=== PATIENT | female | born 1945 | race Caucasian/White ===

== ENCOUNTER 2024-08-02 16:53 | Observation (INO) ==
[2024-08-02 17:14] LABS: ABS Basophils 0.1 10^3/uL (0.0-0.1); ABS Eosinophils 0.1 10^3/uL (0.0-0.5); ABS Monocytes 0.8 10^3/uL (0.0-0.9); ABS Neutrophils 3.8 10^3/uL (1.5-7.6); ABS Nucleated RBC 0.01 10^3/ul; Eosinophil % 2.2 %; Hematocrit 45.1 % (35-45); Hemoglobin 15.5 g/dL (11.5-14.3); Mean Corpuscular Hemoglobin 31.1 pg (27-33); Mean Corpuscular Hgb Conc 34.4 g/dL (31-36); Mean Corpuscular Volume 90.4 fL (80-97); Mean Platelet Volume 9.3 fL (7.5-11.2); Nucleated Red Blood Cells % 0.2 %/100WBC (0.0-0.8); Platelet Count 172 10^3/uL (150-450); Red Blood Count 4.98 10^6/uL (3.63-4.92); Red Cell Distribution Width 12.9 % (12-17); White Blood Count 5.7 10^3/uL (3.8-11.8)
[2024-08-02 17:27] LABS: INR 0.9 (0.85-1.14)
[2024-08-02 17:49] LABS: Albumin 4.2 g/dL (3.2-5.2); Albumin/Globulin Ratio 1.7 (1-3); Calcium 9.6 mg/dL (8.6-10.3); Creatinine, Serum 0.7 mg/dL (0.51-0.95); Globulin 2.5 g/dL (2-4); Potassium 4.1 mmol/L (3.5-5.0); Total Bilirubin 0.8 mg/dL (0.2-1.0); Total Protein 6.7 g/dL (6.4-8.9); eGFR CKD-EPI 87.9 (>60)
[2024-08-02 18:34] LABS: High Sensitivity Troponin 1 Hr 43 pg/mL (<15)
[2024-08-02 19:40] LABS: High Sensitivity Troponin 3 Hr 83 pg/mL (<15)
[2024-08-02] MEDS: Heparin 5000 UNITS/ML 1 mL VIAL IV SCH (22:08)
[2024-08-02] MEDS: Heparin DRIP 25,000 UNITS BAG 25,000 UNITS/250 ML BAG IV SCH (22:11)
[2024-08-02 22:17] LABS: ABS Eosinophils 0.2 10^3/uL (0.0-0.5); ABS Lymphocytes 1.4 10^3/uL (1.0-4.8); ABS Neutrophils 3.9 10^3/uL (1.5-7.6); ABS Nucleated RBC 0.01 10^3/ul; Eosinophil % 2.6 %; Hemoglobin 15.6 g/dL (11.5-14.3); Lymphocyte % 21.2 %; Mean Corpuscular Hemoglobin 30.7 pg (27-33); Mean Corpuscular Volume 90.5 fL (80-97); Mean Platelet Volume 9.3 fL (7.5-11.2); Nucleated Red Blood Cells % 0.1 %/100WBC (0.0-0.8); Platelet Count 183 10^3/uL (150-450); Red Blood Count 5.09 10^6/uL (3.63-4.92); Red Cell Distribution Width 12.9 % (12-17); White Blood Count 6.5 10^3/uL (3.8-11.8)
[2024-08-02 22:42] LABS: Creatinine, Serum 0.76 mg/dL (0.51-0.95); eGFR CKD-EPI 79.7 (>60)
[2024-08-02 22:53] LABS: Magnesium 2.2 mg/dL (1.9-2.7)
[2024-08-02] MEDS ORDERED: Metoprolol Tartrate 5 mg VIAL 5 ml VIAL (1 mg/ml) IV PRN (23:07)
[2024-08-02] MEDS ORDERED: Metoprolol Tartrate 5 mg VIAL 5 ml VIAL (1 mg/ml) IV SCH (23:45)
[2024-08-02 23:51] LABS: HDL Cholesterol 73.7 mg/dL
[2024-08-03 02:57] LABS: High Sensitivity Troponin 1 Hr 81 pg/mL (<15)
[2024-08-03 04:46] LABS: ABS Basophils 0.1 10^3/uL (0.0-0.1); ABS Eosinophils 0.1 10^3/uL (0.0-0.5); ABS Lymphocytes 1.3 10^3/uL (1.0-4.8); ABS Monocytes 0.9 10^3/uL (0.0-0.9); ABS Neutrophils 3.5 10^3/uL (1.5-7.6); ABS Nucleated RBC 0.01 10^3/ul; Eosinophil % 2.4 %; Hematocrit 44.9 % (35-45); Hemoglobin 15.6 g/dL (11.5-14.3); Lymphocyte % 22.1 %; Mean Corpuscular Hgb Conc 34.8 g/dL (31-36); Mean Corpuscular Volume 89.2 fL (80-97); Mean Platelet Volume 9.3 fL (7.5-11.2); Nucleated Red Blood Cells % 0.1 %/100WBC (0.0-0.8); Platelet Count 166 10^3/uL (150-450); Red Blood Count 5.04 10^6/uL (3.63-4.92); Red Cell Distribution Width 12.7 % (12-17)
[2024-08-03 06:12] LABS: Calcium 9.2 mg/dL (8.6-10.3); Creatinine, Serum 0.7 mg/dL (0.51-0.95); Potassium 3.8 mmol/L (3.5-5.0); eGFR CKD-EPI 87.9 (>60)
[2024-08-03] MEDS: Sulfur Hexaflouride MICROSPHR 25 MG VIAL IV PRN (08:30)
[2024-08-03] MEDS: NS 0.9% 1000 ml BAG 1,000 ML IV SCH ×2 (09:43→13:58)
[2024-08-03] MEDS: Empagliflozin 25 MG TAB PO SCH (09:48)
[2024-08-03] MEDS ORDERED: fentaNYL 250 mcg/5 ml 50 MCG/ML 5 ml VIAL (250 MCG) ONE (10:17)
[2024-08-03] MEDS ORDERED: Midazolam 5 mg/5 ml VIAL 1 mg/ml 5 ml VIAL (5 mg) ONE (10:17)
[2024-08-03] MEDS: D5NS 0.9% 1000 ml BAG 1,000 ML IV SCH (10:39)
[2024-08-03] MEDS ORDERED: Heparin 1,000 UNIT/ML 10 ml (10,000 UNITS) CATHLAB/DIALYSIS ONE (10:50)
[2024-08-03] MEDS ORDERED: Lidocaine 1% MPF 5 ML VIAL ONE (10:50)
[2024-08-03] MEDS ORDERED: Heparin 2 UNITS/ML 1000 mls 2,000 ML IV ONE (10:50)
[2024-08-03] MEDS ORDERED: nitroGLYCERIN DRIP 25,000 MCG/250 ML BTL ONE (10:50)
[2024-08-03] MEDS ORDERED: VERAPAMIL 2.5 MG/ML 2 ML VIAL ** 5 mg/2 ml ONE (10:50)
[2024-08-03] MEDS ORDERED: Heparin 5000 UNITS/ML 1 mL VIAL IV SCH (11:00)
[2024-08-03 11:17] LABS: Creatinine, Serum 0.68 mg/dL (0.51-0.95); eGFR CKD-EPI 88.5 (>60)
[2024-08-03] MEDS ORDERED: Iohexol 350 (CONTRAST) 100 ML PAK IV ONE (11:20)
[2024-08-03] MEDS ORDERED: Nitro 2% OINT (Nitroglycerin) 1 INCH/PAK ONE (13:34)
[2024-08-03] MEDS ORDERED: Heparin DRIP 25,000 UNITS BAG 25,000 UNITS/250 ML BAG IV ONE (13:41)
[2024-08-03] MEDS: Nitro 2% OINT (Nitroglycerin) 1 INCH/PAK TOPICAL SCH (13:44)
[2024-08-03] MEDS: Heparin DRIP 25,000 UNITS BAG 25,000 UNITS/250 ML BAG IV SCH (13:46)
[2024-08-03 18:02] VITALS: BP 141/64
== END 2024-08-03 19:10 | disposition short-term general hospital (02) ==
LOC: EDHOLD 16:53 → ED 16:53 → SUATTDRO 22:20 → MEDTELE 08-03 02:29
PROVIDERS: ADMIT Internal Medicine; ATTEND Student in an Organized Health Care Education/Training Program